=== PATIENT | male | born 1950 | race Caucasian/White ===

== ENCOUNTER 2020-01-18 15:53 | Emergency (ER) | payer SELFPAY ==
[~2020-01-18] VITALS: Ht 190.5 cm; Wt 108.9 kg
--- NOTE | 2020-01-18 15:53 | NUR ---
ED Nurse Note: called and spoke with the niece, Iam Banerjee, patient did not have any medication allergy in the past or any major medical history. notified to Dr. Valle. He also reports that the last time he talk on the phone with the patient was on 01/07/20.
--- NOTE | 2020-01-18 15:53 | Emergency Room Report ---
History of Present Illness General Chief Complaint: Generalized Weakness Source: Patient Present Illness HPI Patient is a 69-year-old male brought in by EMS from his apartment. He was noted have increased generalized weakness. Patient was noted to be confused. He had been unable to get out of bed. He lives alone. Neighbors had called paramedics. Past medical history is unobtainable due to patient confusion. This is marked limited by mental status. Allergies: Coded Allergies: UNABLE TO ASSESS (Unverified , 01/18/20) COVID-19 Screening Contact w/high risk pt: No Recent Travel to affected area: No Experienced COVID-19 symptoms?: No Patient History Reviewed Nursing Documentation: PMH: Agreed; PSxH: Agreed Nursing Documentation-PMH Past Medical History Deferred: No Family Available Past Medical History: Deferred Review of Systems All Other Systems: limited - by mental status Physical Exam Vital Signs Date Time Temp Pulse Resp B/P (MAP) Pulse Ox O2 Delivery O2 Flow Rate FiO2 01/18/20 15:41 99.0 85 16 135/5 (48) 100 Room Air General Appearance: alert, Chronically Ill ENT: hearing grossly normal Neck: full range of motion Respiratory: lungs clear, normal breath sounds Cardiovascular #1: normal peripheral pulses Gastrointestinal: normal inspection, soft, no mass Musculoskeletal: other - left upper extremity small bruising Neurologic: alert, 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 Differential diagnosis include was not limited to intracranial hemorrhage, anemia, urinary tract infection, covid19 among others.Because of complexity of patient's case laboratory tests and imaging studies were ordered. Patient was noted to have some increased overall generalized weakness with some increased confusion. Per family member patient has no known prior allergies or past medical history. He does not see a doctor regularly. Nilda Hong . Patient was discussed with Dr. Escamilla from [facility] who agreed to accept the patient as transfer. Patient will be transferred via ALS ambulance. CXR was unremarkable. Labs Test 01/18/20 16:10 Sodium Level 142 MMOL/L (136-145) Potassium Level 3.8 MMOL/L (3.5-5.1) Chloride Level 103 MMOL/L (98-107) Carbon Dioxide Level 23 MMOL/L (21-32) Anion Gap 16 mmol/L (5-15) Blood Urea Nitrogen 25 mg/dL (7-18) Creatinine 1.9 MG/DL (0.55-1.30) Estimat Glomerular Filtration Rate 35.1 mL/min (>60) Glucose Level 103 MG/DL (74-106) Lactic Acid Level 1.30 mmol/L (0.4-2.0) Calcium Level 9.5 MG/DL (8.5-10.1) Phosphorus Level 4.3 MG/DL (2.5-4.9) Magnesium Level 2.7 MG/DL (1.8-2.4) Total Bilirubin 0.8 MG/DL (0.2-1.0) Aspartate Amino Transf (AST/SGOT) 31 U/L (15-37) Alanine Aminotransferase (ALT/SGPT) 21 U/L (12-78) Alkaline Phosphatase 127 U/L (46-116) Total Creatine Kinase 170 U/L (26-308) Creatine Kinase MB 2.2 NG/ML (0.0-3.6) Creatine Kinase MB Relative Index 1.2 Troponin I 0.000 ng/mL (0.000-0.056) Pro-B-Type Natriuretic Peptide 570 pg/mL (0-125) Total Protein 7.5 G/DL (6.4-8.2) Albumin 4.9 G/DL (3.4-5.0) Globulin 2.6 g/dL Albumin/Globulin Ratio 1.9 (1.0-2.7) Lipase 164 U/L (73-393) EKG Diagnostic Results Rate: normal - 74 Rhythm: NSR ST Segments: no acute changes Rhythm Strip Diag. Results EP Interpretation: yes Rhythm: NSR, no PVC's, no ectopy Last Vital Signs Date Time Temp Pulse Resp B/P (MAP) Pulse Ox O2 Delivery O2 Flow Rate FiO2 01/18/20 15:41 99.0 85 16 135/5 (48) 100 Room Air Status: unchanged Disposition: SHORT-TERM HOSP Condition: Critical Scripts Unable to Obtain Active Prescriptions or Reported Meds Jasiel Valle MD Jan 18, 2020 15:53
[2020-01-18] MEDS ORDERED: Cefepime HCl 2 GM in NS 110 ML IV ONE (16:00)
[2020-01-18 16:02] VITALS: BP 120/80
--- NOTE | 2020-01-18 16:05 | NUR ---
Lucian whaley in EDM - 01/18/20 at 1620 by JAYJAYERMANQuiana ED Nurse Note: Pt taken to CT.
--- NOTE | 2020-01-18 16:08 | NUR ---
came from home by recscue with complaints of alterd mental status with lowgrade fever . on arrival patient is awake but confused knows his name . iv started venous blood drawn waiting for ct head
--- NOTE | 2020-01-18 16:09 | NUR ---
ED Nurse Note: Pt taken to CT.
[2020-01-18] MEDS ORDERED: levETIRAcetam 500mg/NS100ml 100 ML IVPB ONE (16:30)
[2020-01-18 16:46] LABS: ANION GAP 16 mmol/L (5-15); BLOOD UREA NITROGEN 25 mg/dL (7-18); CALCIUM 9.5 MG/DL (8.5-10.1); CARBON DIOXIDE 23 MMOL/L (21-32); CHLORIDE 103 MMOL/L (98-107); CREATININE 1.9 MG/DL (0.55-1.30); POTASSIUM 3.8 MMOL/L (3.5-5.1); SODIUM 142 MMOL/L (136-145)
[2020-01-18 17:00] LABS: ALANINE AMINOTRANSFERASE 21 U/L (12-78); ALBUMIN 4.9 G/DL (3.4-5.0); ALBUMIN/GLOBULIN RATIO 1.9 (1.0-2.7); ALKALINE PHOSPHATASE 127 U/L (46-116); ASPARTATE AMINO TRANSFERASE 31 U/L (15-37); BILIRUBIN,TOTAL 0.8 MG/DL (0.2-1.0); CKMB 2.2 NG/ML (0.0-3.6); CREATINE KINASE 170 U/L (26-308); PHOSPHORUS 4.3 MG/DL (2.5-4.9)
--- NOTE | 2020-01-18 17:18 | Diagnostic Imaging Report ---
Indication: Altered level of consciousness Technique: Contiguous 5 mm thick transaxial imaging of the head obtained in a Siemens Sensation [address] scanner. Soft tissue and bone windows generated. Automatic Exposure Control was utilized. Total Dose length Product (DLP): 1036.4mGycm CT Dose Index Volume (CTDIvol): 53.4 mGy Comparison: none Findings: There are multiple parenchymal hemorrhagic foci demonstrated. The largest is in the left parietal lobe measures 5.5 x 3.3 x 3.8 cm. There there is a moderate amount of edema surrounding this focus extending into the temporal lobe and involving parietal lobe. There is some mass effect on the left lateral ventricle and minimal left to right midline shift. Other hemorrhagic foci include the medial right thalamus where there is a 1.5 cm hemorrhagic focus, the right basal ganglia region where there is a 2.4 x 0.7 cm lesion. In the right parietal lobe there is a 2 cm hematoma. Patchy vasogenic edema associated with the these hemorrhagic lesions. 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 Neoplasm is suspected. Further evaluation with gadolinium-enhanced MRI is recommended. Differential diagnosis includes multiple hemorrhagic infarcts due to venous thrombosis. IMPRESSION: Multiple intra-axial hemorrhagic foci as described above. Largest is in the left parietal lobe measuring 5.5 x 3.3 x 3.8 cm. 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 Evaluation with gadolinium-enhanced MRI is suggested. Critical value communication. Findings were discussed via telephone with Dr. Valle in the emergency department 5:00 PM 01/18/2020. The CT scanner at [facility] is accredited by the [employer] and the scans are performed using dose optimization techniques as appropriate to a performed exam including Automatic Exposure control.
[2020-01-18 17:47] LABS: INR 1.2 (0.9-1.1)
[2020-01-18 17:52] LABS: APPEARANCE,URINE SLIGHTLY CLOUDY; BILIRUBIN, URINE NEGATIVE (NEGATIVE); GLUCOSE, URINE (UA) NEGATIVE (NEGATIVE); KETONES,URINE 1+ (NEGATIVE); LEUKOCYTE ESTERASE ,URINE NEGATIVE (NEGATIVE); NITRITE,URINE NEGATIVE (NEGATIVE); PH,URINE 5 (4.5-8.0); PROTEIN,URINE 2+ (NEGATIVE); UROBILINOGEN,URINE NORMAL MG/DL (0.0-1.0)
--- NOTE | 2020-01-18 18:20 | NUR ---
ED Nurse Note: Report given to Anyi NAM at [facility].
[2020-01-18 18:27] LABS: HEMATOCRIT 20.5 % (42.0-52.0); MEAN CORPUSCULAR VOLUME 109 FL (80-99); PLATELET COUNT 34 K/UL (150-450); RED BLOOD COUNT 1.88 M/UL (4.70-6.10); RED CELL DISTRIBUTION WIDTH 19.4 % (11.6-14.8)
[2020-01-18 18:34] VITALS: BP 128/82
--- NOTE | 2020-01-18 18:35 | NUR ---
ER DISCHARGE NOTE: Patient is cleared to be discharged per ERMD to be transferred to [facility], pt is aox1, on room air, with stable vital signs btu temp 99.8 F oral. pt took all belongings. Pt transferred by ambulance with RN and two amb personnel. Report had been given to Anyi NAM.
[2020-01-18 18:41] LABS: COLOR,URINE YELLOW
[2020-01-18 18:49] LABS: HEMOGLOBIN 6.4 G/DL (14.2-18.0)
[2020-01-18 18:50] LABS: WHITE BLOOD COUNT 98.3 K/UL (4.8-10.8)
--- NOTE | 2020-01-19 11:36 | Diagnostic Imaging Report ---
Indication: Dyspnea Comparison: None A single view chest radiograph was obtained. Findings: Cardiomediastinal appearance is within normal limits for age. The lungs are clear. Pulmonary vascularity is appropriate. The diaphragmatic contour is smooth and costophrenic angles are sharp. No pleural effusions are identified. The bones are unremarkable. Impression: No acute findings
== END 2020-01-18 18:36 | disposition short-term general hospital (02) ==
LOC: EDBD 15:53 → EMR 16:41
DX: I61.9 Nontraumatic intracerebral hemorrhage, unspecified (principal); R53.1 Weakness; D64.9 Anemia, unspecified; D69.6 Thrombocytopenia, unspecified
CPT/HCPCS: 36415; 70450; 71045; 80053; 81003; 82550; 82553; 83605; 83690; 83735; 83880; 84100; 84484; 85007; 85025; 85610; 85730; 87040; 93005; 96365; 96368; 96375; 99284; J1953; J7030